=== PATIENT | male | born 2000 | race Caucasian/White ===

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

== ENCOUNTER 2021-01-08 16:53 | Emergency (ER) | payer BC ==
[~2021-01-08] VITALS: Ht 193 cm; Wt 145.2 kg
[2021-01-08] MEDS ORDERED: PAROXETINE ER12.5 MG PO (17:16)
== END 2021-01-08 19:36 | disposition home or self-care (01) ==
LOC: ER 16:53
DX: R42 Dizziness and giddiness (principal); T43.225A Adverse effect of selective serotonin reuptake inhibitors, initial encounter; F17.200 Nicotine dependence, unspecified, uncomplicated; Z88.0 Allergy status to penicillin; Z79.899 Other long term (current) drug therapy
CPT/HCPCS: 93005; 93010; 99283-25; A9270-GY

== ENCOUNTER 2021-02-11 20:49 | Emergency (ER) | payer BC ==
[~2021-02-11] VITALS: Ht 190.5 cm; Wt 136.1 kg
[~2021-02-11 20:49] MED LIST changes: +PAROXETINE ER12.5 MG PO
[2021-02-11 21:31] LABS: BASOPHILS ABSOLUTE AUTO 0.06 K/mm3 (0.00-0.23); BASOPHILS PERCENT AUTO 1 % (0-2); EOSINOPHILS ABSOLUTE AUTO 0.11 K/mm3 (0.00-0.68); EOSINOPHILS PERCENT AUTO 1 % (0-6); Hematocrit 48.2 % (37.0-53.0); Hemoglobin 16.3 g/dL (13.5-17.5); IMMATURE GRAN ABSOLUTE AUTO 0.05 K/mm3 (0.00-0.10); IMMATURE GRAN PERCENT AUTO 0 % (0-1); LYMPHOCYTES ABSOLUTE AUTO 2.54 K/mm3 (0.84-5.20); LYMPHOCYTES PERCENT AUTO 21 % (21-46); MONOCYTES ABSOLUTE AUTO 0.61 K/mm3 (0.16-1.47); MONOCYTES PERCENT AUTO 5 % (4-13); Mean Corpuscular HGB 27.6 pg (26.0-34.0); Mean Corpuscular HGB Conc 33.8 g/dL (31.5-36.5); Mean Corpuscular Volume 82 fL (80-100); Mean Platelet Volume 9.6 fL (9.1-12.4); NEUTROPHILS ABSOLUTE AUTO 8.49 K/mm3 (1.96-9.15); NEUTROPHILS PERCENT AUTO 72 % (41-73); Platelet Count 366 K/mm3 (150-400); RDW Coefficient Variation 12.3 % (11.7-14.2); RDW Standard Deviation 36.1 fL (35.1-46.3); Red Blood Cell Count 5.91 M/mm3 (4.30-5.90); White Blood Cell Count 11.86 K/mm3 (4.00-11.30)
[2021-02-11 21:54] LABS: Alanine Aminotransfer (ALT/SGP 32 U/L (12-78); Albumin, Blood 4.3 g/dL (3.4-5.0); Alk Phos 117 U/L (50-136); Anion Gap 6 mmol/L (6-16); Aspartate Aminotrans (AST/SGOT 16 U/L (12-37); Bilirubin, Total 0.4 mg/dL (0.1-1.0); Blood Urea Nitrogen 11 mg/dL (8-24); Bun/Creatinine Ratio 10.3 (12.0-20.0); CO2, Blood 21 mmol/L (21-32); Calcium, Blood 9.4 mg/dL (8.5-10.1); Chloride, Blood 111 mmol/L (98-108); Creatinine, Blood 1.07 mg/dL (0.60-1.20); Globulin, Blood 4.1 g/dL (2.2-4.0); Glomerular Filtration Rate >60 (60-); Glucose, Blood 113 mg/dL (70-99); Potassium, Blood 3.7 mmol/L (3.5-5.5); Sodium, Blood 138 mmol/L (136-145); Total Protein, Blood 8.4 g/dL (6.4-8.2)
[2021-02-11 23:36] LABS: Free Thyroxine 1.07 ng/dL (0.70-1.60); Thyroid Stimulating Hormone 1.72 uIU/mL (0.360-4.800); Triiodothyronine, Free 2.73 pg/mL (2.18-3.98)
[2021-02-12 01:09] LABS: Source, Urine Clean Catch
[2021-02-12 01:14] LABS: Bilirubin, Urine Neg (Neg); Blood, Urine Neg (Neg); Glucose Qualitative, Urine Neg (Neg); Ketones, Urine Neg (Neg); Leukocyte Esterase, Urine Neg (Neg); Nitrite, Urine Neg (Neg); Protein, Urine 1+ (Neg); Specific Gravity, Urine 1.025 (1.003-1.022); Urobilinogen, Urine NORM (Normal)
[2021-02-12 01:19] LABS: Appearance, Urine Clear (Clear); Color, Urine Yellow (P-Yellow)
[2021-02-12 01:26] LABS: U Amphetamine Screen Not Detected; U Barbituate Screen Not Detected; U Benzodiazapine Screen Not Detected; U Buprenorphine Screen Not Detected; U Cannabinoids Screen Not Detected; U Cocaine Screen Not Detected; U Methadone Screen Not Detected; U Methamphetamine Screen Not Detected; U Opiates Screen Not Detected; U Oxycodone Screen Not Detected; U Phencyclidine Screen Not Detected; U Propoxyphene Screen Not Detected
== END 2021-02-12 02:02 | disposition home or self-care (01) ==
LOC: ER 20:49
PROVIDERS: Emergency Medicine; Physician Assistant
DX: R53.1 Weakness (principal); F17.290 Nicotine dependence, other tobacco product, uncomplicated; Z88.0 Allergy status to penicillin
CPT/HCPCS: 36415; 80053; 83690; 84439; 84443; 84481; 85025; 85379; 93005; 93010; 99283-25; J7030

== ENCOUNTER 2021-03-23 12:23 | Emergency (ER) | payer BC ==
[~2021-03-23] VITALS: Ht 190.5 cm; Wt 131.5 kg
== END 2021-03-23 13:33 | disposition left against medical advice (07) ==
LOC: ER 12:23
DX: R00.1 Bradycardia, unspecified (principal); Z53.21 Procedure and treatment not carried out due to patient leaving prior to being seen by health care provider
CPT/HCPCS: 99283

== ENCOUNTER 2024-06-12 12:43 | Emergency (ER) | payer BC ==
[~2024-06-12] VITALS: Ht 190.5 cm; Wt 149.7 kg
[2024-06-12] MEDS ORDERED: ClonazePAM 0.5 MG Tab PO ONE (14:30)
[2024-06-12 15:30] VITALS: BP 164/92
== END 2024-06-12 15:30 | disposition home or self-care (01) ==
LOC: ER 12:43
DX: F41.9 Anxiety disorder, unspecified (principal); K21.9 Gastro-esophageal reflux disease without esophagitis; F17.220 Nicotine dependence, chewing tobacco, uncomplicated; F17.290 Nicotine dependence, other tobacco product, uncomplicated; Z88.0 Allergy status to penicillin
CPT/HCPCS: 93005; 93010; 99283-25; A9270

== ENCOUNTER 2024-06-29 19:46 | Emergency (ER) | payer BC ==
[~2024-06-29] VITALS: Ht 190.5 cm; Wt 146.1 kg
[2024-06-29] MEDS ORDERED: LISI5 PO (20:21)
[2024-06-29] MEDS ORDERED: HyDROXyzine HCl 25 MG Tab PO ONE (20:45)
[2024-06-29 21:20] VITALS: BP 131/82
[2024-06-29] MEDS ORDERED: Hydroxyzine HCl25 MG PO (21:38)
== END 2024-06-29 22:23 | disposition home or self-care (01) ==
LOC: ER 19:46
DX: F41.9 Anxiety disorder, unspecified (principal); E87.8 Other disorders of electrolyte and fluid balance, not elsewhere classified; Z79.899 Other long term (current) drug therapy; Z88.0 Allergy status to penicillin
CPT/HCPCS: 93005; 93010; 99284-25; A9270

== ENCOUNTER → 2024-08-24 | Outpatient (CLI) | payer BC ==
[~2024-08-24] MED LIST changes: +Hydroxyzine HCl25 MG PO; +LISI5 PO
[2024-08-27 22:56] LABS: APTIMA MEDIA TYPE Urine; C. TRACHOMATIS BY TMA Negative (Negative); N. GONORRHOEAE BY TMA Negative (Negative); SPECIMEN SOURCE Urine
== END ==
LOC: LAB 15:20 → LAB SHORT 15:20
PROVIDERS: Nurse Practitioner Family
DX: Z11.3 Encounter for screening for infections with a predominantly sexual mode of transmission (principal); R30.0 Dysuria
CPT/HCPCS: 87086; 87491; 87591